=== PATIENT | female | born 1975 | race Asian ===

== ENCOUNTER 2017-12-19 22:59 | Emergency (ER) | payer OTHER | END 2017-12-20 03:55 | disposition home or self-care (01) | LOC: FTE 22:59 | DX: S06.0X0A Concussion without loss of consciousness, initial encounter (principal); E03.9 Hypothyroidism, unspecified; W01.190A Fall on same level from slipping, tripping and stumbling with subsequent striking against furniture, initial encounter; Y92.9 Unspecified place or not applicable | CPT/HCPCS: 70450; 99284-25 ==